=== PATIENT | female | born 1955 | race American Indian/Alaskan Native ===

== ENCOUNTER 2016-06-05 15:54 | Emergency (ER) | payer MEDICAID ==
[2016-06-05] MEDS ORDERED: PROVENTIL IH ONE ×2 (16:15→16:17)
[2016-06-05] MEDS ORDERED: ATROVENT IH ONE ×2 (16:15→16:17)
--- NOTE | 2016-06-05 22:41 | Emergency Department Report ---
ED Asthma HPI - General Chief Complaint: Adult Asthma Stated Complaint: REBECCA Time Seen by Provider: 06/05/16 22:25 Source: patient Mode of arrival: Ambulatory Limitations: No Limitations - History of Present Illness Initial Comments: Patient is a 60-year-old female with a history of asthma who presents to ED complaining of asthma exacerbation. Patient states she has nebulizer treatments and albuterol treatments as she takes at home. She states she took a treatment at home but did not feel better so she decided to come in. Patient admits mucus productive cough. Patient states cough started for 3 days. Patient denies fever/chills/nausea/vomiting/abdominal pain/chest pain/diarrhea - Related Data Previous Rx's Medication Instructions Recorded Last Taken Type ALBUTEROL Inhaler [ProAir HFA 2 puff IH PRN PRN #1 pump 06/05/16 Unknown Rx Inhaler] ALBUTEROL NEB's [Proventil 0.083% 2.5 mg IH PRN #1 box 06/05/16 Unknown Rx NEBS] Levofloxacin [Levaquin TAB] 500 mg PO QDAY #5 tablet 06/05/16 Unknown Rx Prednisone [predniSONE 10 mg 10 mg PO .TAPER #1 tab.ds.pk 06/05/16 Unknown Rx (6-Day Pack, 21 Tabs)] Allergies Allergy/AdvReac Type Severity Reaction Status Date / Time azithromycin Allergy Swelling Verified 06/05/16 16:17 ED Review of Systems ROS: Stated complaint: REBECCA Other details as noted in HPI Constitutional: denies: chills, fever Eyes: denies: eye pain, eye discharge, vision change ENT: congestion. denies: ear pain, throat pain, dental pain, hearing loss Respiratory: cough, wheezing. denies: shortness of breath, SOB at rest Cardiovascular: denies: chest pain, palpitations Endocrine: no symptoms reported Gastrointestinal: denies: abdominal pain, nausea, vomiting, diarrhea, hematochezia Genitourinary: denies: urgency, dysuria, discharge Musculoskeletal: denies: back pain, joint swelling, arthralgia, myalgia Skin: denies: rash, lesions Neurological: denies: headache, weakness, paresthesias, confusion, abnormal gait Psychiatric: denies: anxiety, depression Hematological/Lymphatic: denies: easy bleeding, easy bruising ED Past Medical Hx - Past Medical History Previous Medical History?: Yes Hx of Cancer: Yes (breast) Hx Asthma: Yes (bronchitis) - Surgical History Past Surgical History?: Yes Additional Surgical History: right mastectomy 2003 - Social History Smoking Status: Current Some Day Smoker Substance Use Type: None - Medications Home Medications: Home Medications Medication Instructions Recorded Confirmed Last Taken Type ALBUTEROL Inhaler [ProAir HFA 2 puff IH PRN PRN #1 pump 06/05/16 Unknown Rx Inhaler] ALBUTEROL NEB's [Proventil 0.083% 2.5 mg IH PRN #1 box 06/05/16 Unknown Rx NEBS] Levofloxacin [Levaquin TAB] 500 mg PO QDAY #5 tablet 06/05/16 Unknown Rx Prednisone [predniSONE 10 mg 10 mg PO .TAPER #1 tab.ds.pk 06/05/16 Unknown Rx (6-Day Pack, 21 Tabs)] ED Physical Exam - General Limitations: No Limitations General appearance: alert, in no apparent distress - Head Head exam: Present: atraumatic, normocephalic - Eye Eye exam: Present: normal appearance - ENT ENT exam: Present: mucous membranes moist - Neck Neck exam: Present: normal inspection - Respiratory Respiratory exam: Present: normal lung sounds bilaterally, wheezes (bilateral at the base of the lungs). Absent: respiratory distress, rales, rhonchi, stridor, chest wall tenderness, accessory muscle use, decreased breath sounds, prolonged expiratory - Cardiovascular Cardiovascular Exam: Present: regular rate, normal rhythm. Absent: systolic murmur, diastolic murmur, rubs, gallop - GI/Abdominal GI/Abdominal exam: Present: soft, normal bowel sounds. Absent: distended, tenderness, guarding, rebound, rigid - Extremities Exam Extremities exam: Present: normal inspection, full ROM, normal capillary refill. Absent: tenderness, calf tenderness - Back Exam Back exam: Present: normal inspection, full ROM. Absent: CVA tenderness (R), CVA tenderness (L) - Neurological Exam Neurological exam: Present: alert, oriented X3, CN II-XII intact, normal gait - Psychiatric Psychiatric exam: Present: normal affect, normal mood - Skin Skin exam: Present: warm, dry, intact, normal color. Absent: rash ED Course Vital Signs 06/05/16 06/05/16 06/06/16 16:08 22:46 00:14 Temperature 98.1 F 97.8 F Pulse Rate 87 87 88 Respiratory 24 20 20 Rate Blood Pressure 142/92 Blood Pressure 129/75 131/70 [Left] O2 Sat by Pulse 98 95 96 Oximetry ED Medical Decision Making - EKG Data EKG shows normal: sinus rhythm Rate: normal - EKG Data Interpretation: other (left atrial enlargement otherwise normal EKG) - Medical Decision Making 60-year-old female presents with asthma exacerbation. ED course: Patient received one breathing treatment albuterol and another breathing treatment of Atrovent. Alert and oriented 3. Patient is not in any acute or respiratory distress. Vital signs stable. Patient also received 125 mg of Solu-Medrol IM. And one more treatment of DuoNeb. chest x-ray shows mild COPD otherwise normal chest x-ray, no effusion noted, No pneumothorax or consolidation. Patient reports feeling better and difficulty breathing has decreased. Discussed with patient antibiotic therapy for URI Discussed with patient follow-up with primary care physician. Discussed the patient to take medication as prescribed. Critical care attestation.: If time is entered above; I have spent that time in minutes in the direct care of this critically ill patient, excluding procedure time. ED Disposition Clinical Impression: Asthma exacerbation URI (upper respiratory infection) Qualifiers: URI type: unspecified URI Qualified Code(s): J06.9 - Acute upper respiratory infection, unspecified COPD (chronic obstructive pulmonary disease) Qualifiers: COPD type: chronic bronchitis Chronic bronchitis type: simple Qualified Code(s) : J41.0 - Simple chronic bronchitis Disposition: DISCHARGED TO HOME OR SELFCARE Is pt being admited?: No Does the pt Need Aspirin: No Condition: Stable Instructions: Asthma (ED), Upper Respiratory Infection (ED), Chronic Obstructive Pulmonary Disease (ED) Prescriptions: ALBUTEROL Inhaler [ProAir HFA Inhaler] 2 puff IH PRN PRN #1 pump PRN Reason: Shortness Of Breath ALBUTEROL NEB's [Proventil 0.083% NEBS] 2.5 mg IH PRN #1 box Levofloxacin [Levaquin TAB] 500 mg PO QDAY #5 tablet Prednisone [predniSONE 10 mg (6-Day Pack, 21 Tabs)] 10 mg PO .TAPER #1 tab.ds.pk Referrals: PRIMARY CARE, [Primary Care Provider] - 3-5 Days Forms: Work/School Release Form(ED) Time of Disposition: 00:05
[2016-06-05] MEDS ORDERED: DUONEB 0.5 MG-3 MG/3 ML SOLN IH ONE (22:51)
--- NOTE | 2016-06-05 23:33 | XRay Report ---
FINAL REPORT PROCEDURE: XR CHEST ROUTINE 2V TECHNIQUE: PA and lateral chest radiographs were obtained. CPT 36292 HISTORY: Difficulty breathing, shortness of breath COMPARISON: No prior studies are available for comparison. FINDINGS: Heart: Normal. Mediastinum/Vessels: Normal. Lungs/Pleural space: Mild chronic obstructive pulmonary changes. No consolidation, effusion or pneumothorax. Bony thorax: No acute osseous abnormality. Other: There has been previous surgery in the right axillary region. IMPRESSION: Mild COPD. No evidence of an acute consolidation or effusion..
[2016-06-06 00:15] VITALS: BP 131/70
== END 2016-06-06 00:24 | disposition home or self-care (01) ==
LOC: ED 15:54
DX: J45.901 Unspecified asthma with (acute) exacerbation (principal); J06.9 Acute upper respiratory infection, unspecified; J41.0 Simple chronic bronchitis; Z85.3 Personal history of malignant neoplasm of breast; Z90.11 Acquired absence of right breast and nipple; F17.200 Nicotine dependence, unspecified, uncomplicated; Z88.1 Allergy status to other antibiotic agents
CPT/HCPCS: 71020; 93005; 93010; 94640; 96372; 99284; J2930